=== PATIENT | female | born 1940 | race Caucasian/White ===

== ENCOUNTER 2017-12-04 10:10 | Inpatient (IN) | payer MEDICARE, MEDICAID ==
[2017-12-04] VITALS (11 sets, daily range): BP systolic 74–142; BP diastolic 32–117
[~2017-12-04] VITALS: Ht 157.5 cm; Wt 81.8 kg
[~2017-12-04 10:10] MED LIST: ADV50250 IH; ALBU18HF2 IH; BUSP10TA11 PO; CITA-278 PO; HYDR-569 PO; HYDR12.522 PO; IMD30T PO; MELO-83 PO; MONT10TA21 PO; PANT40TA39 PO; ROSU10TA PO; TIOT18CA7 IH; WEL100T PO
[2017-12-04 10:37] LABS: BASOPHILS % (AUTO) 0.4 % (0-1); EOSINOPHILS # (AUTO) 0.1 X10'3 (0-0.9); EOSINOPHILS % (AUTO) 2.3 % (0-6); HEMATOCRIT 30.4 % (35.0-45.0); HEMOGLOBIN 10.1 g/dl (12.0-16.0); LYMPHOCYTES # (AUTO) 0.6 X10'3 (1.1-4.8); LYMPHOCYTES % (AUTO) 14.2 % (21-51); MEAN CORPUSCULAR HEMOGLOBIN 32.4 PG (27.0-31.0); MEAN CORPUSCULAR HGB CONC 33.2 % (33.0-36.5); MEAN CORPUSCULAR VOLUME 97.8 FL (78-98); MEAN PLATELET VOLUME 8.2 FL (7.4-10.4); MONOCYTES # (AUTO) 0.4 X10'3 (0-0.9); MONOCYTES % (AUTO) 8.5 % (2-12); NEUTROPHILS # (AUTO) 3.3 X10'3 (1.8-7.7); NEUTROPHILS % (AUTO) 74.6 % (42-75); PLATELET COUNT 217 X10'3 (140-440); RED BLOOD COUNT 3.11 X10'6 (4.20-5.60); RED CELL DISTRIBUTION WIDTH 14.7 % (11.5-14.5); WHITE BLOOD COUNT 4.4 X10'3 (4.5-11.0)
[2017-12-04 10:48] LABS: INR 1.1 INR; PARTIAL THROMBOPLASTIN TIME 28 SECONDS (22-32); PROTHROMBIN TIME 11.4 SECONDS (9.0-12.0)
[2017-12-04 10:54] LABS: ALANINE AMINOTRANSFERASE 20 U/L (12-78); ALBUMIN 3.8 G/DL (3.4-5.0); ALBUMIN/GLOBULIN RATIO 1.2 (1.1-1.5); ALKALINE PHOSPHATASE 78 IU/L (46-116); ANION GAP 9 (8-16); ASPARTATE AMINO TRANSFERASE 14 U/L (10-37); BILIRUBIN,TOTAL 1.2 MG/DL (0.1-1.0); BLOOD UREA NITROGEN 6 MG/DL (7-18); BUN/CREATININE RATIO 7.9 (6.6-38.0); CHLORIDE 96 MMOL/L (99-107); CREATININE 0.76 MG/DL (0.40-0.90); GLUCOSE 93 MG/DL (70-104); POTASSIUM 4.2 MMOL/L (3.5-5.1); SODIUM 131 MMOL/L (135-145); TOTAL CARBON DIOXIDE 25.7 MMOL/L (24-32); TOTAL PROTEIN 6.9 G/DL (6.4-8.2); eGFR 74 ML/MIN
[2017-12-04] MEDS ORDERED: verapamil 2.5 mg/ml inj IV ONE (12:40)
[2017-12-04] MEDS ORDERED: albuterol 2.5 MG/3 ML nebule NEB PRN (13:30)
[2017-12-04] MEDS ORDERED: normal saline 1000ml 1,000 ML IV SCH (13:32)
[2017-12-04] MEDS ORDERED: magnesium 4gm in 100ml NS 100 ML IV PRN (13:35)
[2017-12-04] MEDS ORDERED: potassium Cl 20 mEq SR tablet PO PRN ×2 (13:35)
[2017-12-04] MEDS ORDERED: magnesium hydroxide 30ml (MOM) UD suspension PO PRN (13:35)
[2017-12-04] MEDS ORDERED: HYDROcodone/acetaminophen 10/325mg tab PO PRN (13:35)
[2017-12-04] MEDS ORDERED: magnesium Cl slow-release 64mg tablet PO PRN (13:35)
[2017-12-04] MEDS ORDERED: magnesium 2GM in 50ml NS 50 ML IV PRN (13:35)
[2017-12-04] MEDS ORDERED: acetaminophen 325mg tablet PO PRN ×2 (13:35)
[2017-12-04] MEDS ORDERED: mag hydrox/Alum hydrox/simeth 30ml oral suspension PO PRN ×2 (13:35→14:25)
[2017-12-04] MEDS ORDERED: diphenhydrAMINE 25mg capsule PO PRN (13:35)
[2017-12-04] MEDS ORDERED: morphine 4 MG/ML inj SYRINge IV PRN ×2 (13:35)
[2017-12-04] MEDS ORDERED: potassium Cl 40MEQ/NS 500ml 500 ML IV PRN ×2 (13:35)
[2017-12-04] MEDS: K and/or MAG REPLACEMENT MC SCH (13:35)
[2017-12-04] MEDS ORDERED: ondansetron/PF 4mg/2ml inj IV PRN (13:35)
[2017-12-04] MEDS: diltiazem-NS 100mg/100ml 100 ML IV SCH (14:04)
[2017-12-04 14:20] LABS: HEMOGLOBIN A1C 5.2 % (4.5-6.2)
[2017-12-04] MEDS ORDERED: haloperidol 5mg tablet PO PRN (14:25)
[2017-12-04] MEDS ORDERED: haloperidol lactate 5mg/ml inj IM PRN (14:25)
[2017-12-04] MEDS ORDERED: LORazepam 2 mg/ml vial IV PRN (14:25)
[2017-12-04] MEDS ORDERED: thiamine inj. 100 MG in normal saline 100ml IV soln 100 ML IV ONE (14:25)
[2017-12-04 15:54] LABS: % IRON SATURATION 9 % (11-46); IRON 37 UG/DL (49-151); TOTAL IRON BINDING CAPACITY 393 UG/DL (259-388)
[2017-12-04 16:11] LABS: FERRITIN 46 NG/ML (8-252)
[2017-12-04] MEDS: normal saline 1000ml 1,000 ML IV SCH (18:53)
[2017-12-04] MEDS: apixaban 5mg tablet PO SCH (19:37)
[2017-12-04] MEDS: sotalol 80mg tablet PO SCH (19:37)
[2017-12-04] MEDS: busPIRone 15mg tablet PO SCH (19:38)
[2017-12-04] MEDS: ipratropium 0.5 MG/2.5ML nebule IH SCH (21:21)
[2017-12-04] MEDS: BUDESONIDE 0.25 MG/2 ML AMPUL.NEB IH SCH (21:22)
[2017-12-04] MEDS: albuterol 2.5 MG/3 ML nebule NEB SCH (22:26)
[2017-12-05] VITALS (13 sets, daily range): BP systolic 85–156; BP diastolic 55–95
[2017-12-05] MEDS: ipratropium 0.5 MG/2.5ML nebule IH SCH ×4 (03:20→20:04)
[2017-12-05 05:29] LABS: BASOPHILS % (AUTO) 0.9 % (0-1); EOSINOPHILS # (AUTO) 0.2 X10'3 (0-0.9); EOSINOPHILS % (AUTO) 5.2 % (0-6); HEMATOCRIT 29.2 % (35.0-45.0); HEMOGLOBIN 9.9 g/dl (12.0-16.0); LYMPHOCYTES # (AUTO) 1.1 X10'3 (1.1-4.8); LYMPHOCYTES % (AUTO) 29.4 % (21-51); MEAN CORPUSCULAR HGB CONC 33.8 % (33.0-36.5); MEAN CORPUSCULAR VOLUME 97.6 FL (78-98); MEAN PLATELET VOLUME 8.9 FL (7.4-10.4); MONOCYTES # (AUTO) 0.3 X10'3 (0-0.9); MONOCYTES % (AUTO) 7.7 % (2-12); NEUTROPHILS # (AUTO) 2.2 X10'3 (1.8-7.7); NEUTROPHILS % (AUTO) 56.8 % (42-75); PLATELET COUNT 223 X10'3 (140-440); RED BLOOD COUNT 2.99 X10'6 (4.20-5.60); RED CELL DISTRIBUTION WIDTH 14.5 % (11.5-14.5); WHITE BLOOD COUNT 3.9 X10'3 (4.5-11.0)
[2017-12-05 06:16] LABS: ALANINE AMINOTRANSFERASE 17 U/L (12-78); ALBUMIN 3.5 G/DL (3.4-5.0); ALBUMIN/GLOBULIN RATIO 1.1 (1.1-1.5); ALKALINE PHOSPHATASE 70 IU/L (46-116); ANION GAP 10 (8-16); ASPARTATE AMINO TRANSFERASE 11 U/L (10-37); BLOOD UREA NITROGEN 7 MG/DL (7-18); CALCIUM 8.8 MG/DL (8.5-10.1); CHLORIDE 98 MMOL/L (99-107); CHOL/HDL RATIO 1.3 (0.00-4.99); CHOLESTEROL 136 MG/DL (0-200); CREATININE 0.88 MG/DL (0.40-0.90); GLUCOSE 82 MG/DL (70-104); HDL CHOLESTEROL 103 MG/DL (35-60); LDL CHOLESTEROL 28 MG/DL (50-100); LIPASE 103 U/L (73-393); MAGNESIUM 1.7 MG/DL (1.5-2.4); PHOSPHORUS 3.9 MG/DL (2.3-4.5); POTASSIUM 4.1 MMOL/L (3.5-5.1); SODIUM 132 MMOL/L (135-145); TOTAL CARBON DIOXIDE 24.2 MMOL/L (24-32); TOTAL PROTEIN 6.7 G/DL (6.4-8.2); TRIGLYCERIDES 36 MG/DL (20-135); eGFR 62 ML/MIN
[2017-12-05] MEDS: K and/or MAG REPLACEMENT MC SCH (08:00)
[2017-12-05] MEDS ORDERED: enoxaparin 40mg/0.4ml syringe SUBCUT SCH (08:00)
[2017-12-05] MEDS: BUDESONIDE 0.25 MG/2 ML AMPUL.NEB IH SCH ×2 (08:23→20:05)
[2017-12-05] MEDS: albuterol 2.5 MG/3 ML nebule NEB SCH ×4 (08:24→20:05)
[2017-12-05] MEDS: folic acid 1mg tablet PO SCH (08:53)
[2017-12-05] MEDS: isosorbide mononitrate 30mg tab.SR.24H PO SCH (08:53)
[2017-12-05] MEDS: thiamine 100mg tablet PO SCH (08:53)
[2017-12-05] MEDS: montelukast 10mg tablet PO SCH (08:53)
[2017-12-05] MEDS: busPIRone 15mg tablet PO SCH ×2 (08:53→20:31)
[2017-12-05] MEDS: buPROPion SR 150mg tablet PO SCH ×2 (08:54→20:31)
[2017-12-05] MEDS: HYDROchlorothiazide 12.5mg capsule PO SCH (08:54)
[2017-12-05] MEDS: atorvastatin 20mg tablet PO SCH (08:54)
[2017-12-05] MEDS: sotalol 80mg tablet PO SCH ×2 (08:54→20:31)
[2017-12-05] MEDS: citalopram 20mg tablet PO SCH (08:54)
[2017-12-05] MEDS: multivitamins, therapeutics tablet PO SCH (08:55)
[2017-12-05] MEDS: pantoprazole 40mg Tablet.DR PO SCH (08:55)
[2017-12-05] MEDS: apixaban 5mg tablet PO SCH ×2 (08:55→20:31)
[2017-12-05] MEDS: diltiazem-NS 100mg/100ml 100 ML IV SCH (08:56)
[2017-12-05] MEDS: diltiazem 30mg tablet PO SCH ×2 (14:19→20:31)
[2017-12-06] VITALS (7 sets, daily range): BP systolic 96–141; BP diastolic 59–98
[2017-12-06] MEDS: diltiazem 30mg tablet PO SCH ×4 (02:03→19:23)
[2017-12-06] MEDS: ipratropium 0.5 MG/2.5ML nebule IH SCH ×3 (02:46→20:48)
[2017-12-06 05:19] LABS: BASOPHILS # (AUTO) 0.1 X10'3 (0-0.2); BASOPHILS % (AUTO) 1.5 % (0-1); EOSINOPHILS # (AUTO) 0.2 X10'3 (0-0.9); EOSINOPHILS % (AUTO) 4.9 % (0-6); HEMATOCRIT 29.5 % (35.0-45.0); HEMOGLOBIN 9.9 g/dl (12.0-16.0); LYMPHOCYTES # (AUTO) 1.3 X10'3 (1.1-4.8); LYMPHOCYTES % (AUTO) 27.5 % (21-51); MEAN CORPUSCULAR HEMOGLOBIN 32.8 PG (27.0-31.0); MEAN CORPUSCULAR HGB CONC 33.6 % (33.0-36.5); MEAN CORPUSCULAR VOLUME 97.5 FL (78-98); MEAN PLATELET VOLUME 8.8 FL (7.4-10.4); MONOCYTES # (AUTO) 0.4 X10'3 (0-0.9); MONOCYTES % (AUTO) 9.1 % (2-12); NEUTROPHILS # (AUTO) 2.6 X10'3 (1.8-7.7); PLATELET COUNT 216 X10'3 (140-440); RED BLOOD COUNT 3.03 X10'6 (4.20-5.60); RED CELL DISTRIBUTION WIDTH 14.3 % (11.5-14.5); WHITE BLOOD COUNT 4.6 X10'3 (4.5-11.0)
[2017-12-06 05:51] LABS: ALANINE AMINOTRANSFERASE 18 U/L (12-78); ALBUMIN 3.4 G/DL (3.4-5.0); ALBUMIN/GLOBULIN RATIO 1.1 (1.1-1.5); ALKALINE PHOSPHATASE 72 IU/L (46-116); ANION GAP 10 (8-16); ASPARTATE AMINO TRANSFERASE 16 U/L (10-37); BILIRUBIN,TOTAL 0.7 MG/DL (0.1-1.0); BLOOD UREA NITROGEN 7 MG/DL (7-18); BUN/CREATININE RATIO 8.2 (6.6-38.0); CALCIUM 8.8 MG/DL (8.5-10.1); CHLORIDE 96 MMOL/L (99-107); CREATININE 0.85 MG/DL (0.40-0.90); GLUCOSE 91 MG/DL (70-104); LIPASE 99 U/L (73-393); MAGNESIUM 1.5 MG/DL (1.5-2.4); PHOSPHORUS 3.9 MG/DL (2.3-4.5); POTASSIUM 3.7 MMOL/L (3.5-5.1); SODIUM 130 MMOL/L (135-145); TOTAL CARBON DIOXIDE 24.4 MMOL/L (24-32); TOTAL PROTEIN 6.5 G/DL (6.4-8.2); eGFR 65 ML/MIN
[2017-12-06] MEDS: atorvastatin 20mg tablet PO SCH (07:30)
[2017-12-06] MEDS: pantoprazole 40mg Tablet.DR PO SCH (07:30)
[2017-12-06] MEDS: citalopram 20mg tablet PO SCH (07:30)
[2017-12-06] MEDS: multivitamins, therapeutics tablet PO SCH (07:31)
[2017-12-06] MEDS: sotalol 80mg tablet PO SCH ×2 (07:32→19:23)
[2017-12-06] MEDS: isosorbide mononitrate 30mg tab.SR.24H PO SCH (07:32)
[2017-12-06] MEDS: apixaban 5mg tablet PO SCH ×2 (07:32→19:23)
[2017-12-06] MEDS: busPIRone 15mg tablet PO SCH ×2 (07:32→19:23)
[2017-12-06] MEDS: HYDROchlorothiazide 12.5mg capsule PO SCH (07:32)
[2017-12-06] MEDS: thiamine 100mg tablet PO SCH (07:32)
[2017-12-06] MEDS: buPROPion SR 150mg tablet PO SCH ×2 (07:33→19:23)
[2017-12-06] MEDS: folic acid 1mg tablet PO SCH (07:33)
[2017-12-06] MEDS: BUDESONIDE 0.25 MG/2 ML AMPUL.NEB IH SCH ×2 (07:45→20:48)
[2017-12-06] MEDS: albuterol 2.5 MG/3 ML nebule NEB SCH ×4 (07:45→20:47)
[2017-12-06] MEDS: K and/or MAG REPLACEMENT MC SCH (08:00)
[2017-12-06] MEDS: montelukast 10mg tablet PO SCH (09:32)
[2017-12-06] MEDS: HYDROcodone/acetaminophen 5mg/325mg tablet PO PRN (11:47)
[2017-12-06] MEDS ORDERED: LORazepam 2 mg/ml vial IV PRN (14:25)
[2017-12-06] MEDS: normal saline 1000ml 1,000 ML IV SCH (18:35)
[2017-12-07] VITALS (8 sets, daily range): BP systolic 105–137; BP diastolic 69–89
[2017-12-07] MEDS: diltiazem 30mg tablet PO SCH ×4 (01:46→20:17)
[2017-12-07] MEDS: ipratropium 0.5 MG/2.5ML nebule IH SCH ×4 (02:48→20:12)
[2017-12-07 05:15] LABS: BASOPHILS % (AUTO) 0.7 % (0-1); EOSINOPHILS # (AUTO) 0.2 X10'3 (0-0.9); EOSINOPHILS % (AUTO) 3.8 % (0-6); HEMATOCRIT 29.7 % (35.0-45.0); MEAN CORPUSCULAR HEMOGLOBIN 32.5 PG (27.0-31.0); MEAN CORPUSCULAR HGB CONC 33.6 % (33.0-36.5); MEAN CORPUSCULAR VOLUME 96.9 FL (78-98); MEAN PLATELET VOLUME 9.1 FL (7.4-10.4); MONOCYTES # (AUTO) 0.5 X10'3 (0-0.9); MONOCYTES % (AUTO) 8.5 % (2-12); NEUTROPHILS # (AUTO) 3.8 X10'3 (1.8-7.7); PLATELET COUNT 246 X10'3 (140-440); RED BLOOD COUNT 3.07 X10'6 (4.20-5.60); RED CELL DISTRIBUTION WIDTH 14.3 % (11.5-14.5); WHITE BLOOD COUNT 5.5 X10'3 (4.5-11.0)
[2017-12-07 05:30] LABS: ALANINE AMINOTRANSFERASE 16 U/L (12-78); ALBUMIN 3.6 G/DL (3.4-5.0); ALBUMIN/GLOBULIN RATIO 1.1 (1.1-1.5); ALKALINE PHOSPHATASE 69 IU/L (46-116); ANION GAP 10 (8-16); ASPARTATE AMINO TRANSFERASE 15 U/L (10-37); BILIRUBIN,TOTAL 0.8 MG/DL (0.1-1.0); BLOOD UREA NITROGEN 9 MG/DL (7-18); BUN/CREATININE RATIO 10.1 (6.6-38.0); CALCIUM 8.9 MG/DL (8.5-10.1); CHLORIDE 92 MMOL/L (99-107); CREATININE 0.89 MG/DL (0.40-0.90); GLUCOSE 93 MG/DL (70-104); LIPASE 116 U/L (73-393); MAGNESIUM 1.4 MG/DL (1.5-2.4); PHOSPHORUS 3.9 MG/DL (2.3-4.5); POTASSIUM 3.7 MMOL/L (3.5-5.1); SODIUM 126 MMOL/L (135-145); TOTAL CARBON DIOXIDE 24.2 MMOL/L (24-32); TOTAL PROTEIN 6.8 G/DL (6.4-8.2); eGFR 61 ML/MIN
[2017-12-07] MEDS: BUDESONIDE 0.25 MG/2 ML AMPUL.NEB IH SCH ×2 (07:52→20:12)
[2017-12-07] MEDS: albuterol 2.5 MG/3 ML nebule NEB SCH ×4 (07:52→20:13)
[2017-12-07] MEDS: K and/or MAG REPLACEMENT MC SCH (08:00)
[2017-12-07] MEDS: citalopram 20mg tablet PO SCH (08:22)
[2017-12-07] MEDS: buPROPion SR 150mg tablet PO SCH ×2 (08:22→20:17)
[2017-12-07] MEDS: HYDROchlorothiazide 12.5mg capsule PO SCH (08:23)
[2017-12-07] MEDS: busPIRone 15mg tablet PO SCH ×2 (08:23→20:17)
[2017-12-07] MEDS: pantoprazole 40mg Tablet.DR PO SCH (08:23)
[2017-12-07] MEDS: montelukast 10mg tablet PO SCH (08:23)
[2017-12-07] MEDS: thiamine 100mg tablet PO SCH (08:24)
[2017-12-07] MEDS: atorvastatin 20mg tablet PO SCH (08:24)
[2017-12-07] MEDS: apixaban 5mg tablet PO SCH ×2 (08:24→20:17)
[2017-12-07] MEDS: folic acid 1mg tablet PO SCH (08:24)
[2017-12-07] MEDS: multivitamins, therapeutics tablet PO SCH (08:24)
[2017-12-07] MEDS: isosorbide mononitrate 30mg tab.SR.24H PO SCH (08:24)
[2017-12-07] MEDS: sotalol 80mg tablet PO SCH ×2 (08:24→20:17)
[2017-12-07] MEDS: HYDROcodone/acetaminophen 5mg/325mg tablet PO PRN (14:08)
[2017-12-07] MEDS: LORazepam 1 MG tablet PO PRN ×2 (19:32→23:08)
[2017-12-08] MEDS: diltiazem 30mg tablet PO SCH ×4 (01:31→20:42)
[2017-12-08] MEDS: LORazepam 1 MG tablet PO PRN (01:32)
[2017-12-08] MEDS: ipratropium 0.5 MG/2.5ML nebule IH SCH ×4 (02:48→20:14)
[2017-12-08 03:00] VITALS: BP 138/81
[2017-12-08 05:35] LABS: BASOPHILS % (AUTO) 0.3 % (0-1); EOSINOPHILS # (AUTO) 0.1 X10'3 (0-0.9); EOSINOPHILS % (AUTO) 1.8 % (0-6); HEMATOCRIT 29.1 % (35.0-45.0); HEMOGLOBIN 9.8 g/dl (12.0-16.0); LYMPHOCYTES # (AUTO) 0.5 X10'3 (1.1-4.8); LYMPHOCYTES % (AUTO) 7.1 % (21-51); MEAN CORPUSCULAR HEMOGLOBIN 32.7 PG (27.0-31.0); MEAN CORPUSCULAR HGB CONC 33.8 % (33.0-36.5); MEAN CORPUSCULAR VOLUME 96.8 FL (78-98); MEAN PLATELET VOLUME 9.1 FL (7.4-10.4); MONOCYTES # (AUTO) 0.9 X10'3 (0-0.9); MONOCYTES % (AUTO) 11.5 % (2-12); NEUTROPHILS % (AUTO) 79.3 % (42-75); PLATELET COUNT 238 X10'3 (140-440); RED CELL DISTRIBUTION WIDTH 14.1 % (11.5-14.5); WHITE BLOOD COUNT 7.6 X10'3 (4.5-11.0)
[2017-12-08 06:00] VITALS: BP 124/92
[2017-12-08 06:16] LABS: ALANINE AMINOTRANSFERASE 15 U/L (12-78); ALBUMIN 3.5 G/DL (3.4-5.0); ALBUMIN/GLOBULIN RATIO 1.1 (1.1-1.5); ALKALINE PHOSPHATASE 69 IU/L (46-116); ANION GAP 9 (8-16); ASPARTATE AMINO TRANSFERASE 15 U/L (10-37); BILIRUBIN,TOTAL 1.1 MG/DL (0.1-1.0); BLOOD UREA NITROGEN 7 MG/DL (7-18); BUN/CREATININE RATIO 9.7 (6.6-38.0); CALCIUM 8.7 MG/DL (8.5-10.1); CHLORIDE 89 MMOL/L (99-107); CREATININE 0.72 MG/DL (0.40-0.90); GLUCOSE 94 MG/DL (70-104); LIPASE 150 U/L (73-393); MAGNESIUM 1.3 MG/DL (1.5-2.4); PHOSPHORUS 3.5 MG/DL (2.3-4.5); POTASSIUM 3.2 MMOL/L (3.5-5.1); SODIUM 123 MMOL/L (135-145); TOTAL CARBON DIOXIDE 24.8 MMOL/L (24-32); TOTAL PROTEIN 6.8 G/DL (6.4-8.2); eGFR 78 ML/MIN
[2017-12-08] MEDS: K and/or MAG REPLACEMENT MC SCH (08:00)
[2017-12-08] MEDS ORDERED: potassium Cl 40MEQ/NS 500ml 500 ML IV PRN ×2 (08:30)
[2017-12-08] MEDS ORDERED: magnesium 2GM in 50ml NS 50 ML IV PRN (08:30)
[2017-12-08] MEDS ORDERED: magnesium 4gm in 100ml NS 100 ML IV PRN (08:30)
[2017-12-08] MEDS ORDERED: potassium Cl 20 mEq SR tablet PO PRN (08:30)
[2017-12-08] MEDS: albuterol 2.5 MG/3 ML nebule NEB SCH ×4 (08:34→20:13)
[2017-12-08] MEDS: BUDESONIDE 0.25 MG/2 ML AMPUL.NEB IH SCH ×2 (08:34→20:13)
[2017-12-08] MEDS: normal saline 1000ml 1,000 ML IV SCH ×2 (09:04→22:48)
[2017-12-08] MEDS ORDERED: LIDOcaine 1% 30ml vial 5 ML in potassium Cl 40MEQ/NS 500ml 500 ML IV PRN (09:15)
[2017-12-08 11:00] VITALS: BP 126/81
[2017-12-08] MEDS ORDERED: LORazepam 2 mg/ml vial IV PRN (14:25)
[2017-12-08] MEDS ORDERED: LORazepam 1 MG tablet PO PRN (14:25)
[2017-12-08] MEDS: sotalol 80mg tablet PO SCH ×2 (14:37→20:42)
[2017-12-08] MEDS: busPIRone 15mg tablet PO SCH ×2 (14:38→20:42)
[2017-12-08] MEDS: citalopram 20mg tablet PO SCH (14:40)
[2017-12-08] MEDS: apixaban 5mg tablet PO SCH ×2 (14:40→20:42)
[2017-12-08] MEDS: folic acid 1mg tablet PO SCH (14:41)
[2017-12-08] MEDS: isosorbide mononitrate 30mg tab.SR.24H PO SCH (14:41)
[2017-12-08] MEDS: atorvastatin 20mg tablet PO SCH (14:41)
[2017-12-08] MEDS: HYDROchlorothiazide 12.5mg capsule PO SCH (14:42)
[2017-12-08] MEDS: montelukast 10mg tablet PO SCH (14:44)
[2017-12-08] MEDS: pantoprazole 40mg Tablet.DR PO SCH (14:44)
[2017-12-08] MEDS: multivitamins, therapeutics tablet PO SCH (14:44)
[2017-12-08] MEDS: thiamine 100mg tablet PO SCH (14:45)
[2017-12-08] MEDS: buPROPion SR 150mg tablet PO SCH ×2 (14:45→20:42)
[2017-12-08] MEDS: magnesium Cl slow-release 64mg tablet PO PRN ×2 (14:49→20:42)
[2017-12-08 15:00] VITALS: BP 138/92
[2017-12-08 19:00] VITALS: BP 126/69
[2017-12-08 23:00] VITALS: BP 131/96
[2017-12-09] VITALS (7 sets, daily range): BP systolic 97–132; BP diastolic 71–89
[2017-12-09] MEDS: diltiazem 30mg tablet PO SCH ×4 (02:30→20:16)
[2017-12-09] MEDS: ipratropium 0.5 MG/2.5ML nebule IH SCH ×4 (02:50→19:36)
[2017-12-09 05:27] LABS: BASOPHILS % (AUTO) 0.3 % (0-1); EOSINOPHILS % (AUTO) 0.7 % (0-6); HEMATOCRIT 28.2 % (35.0-45.0); HEMOGLOBIN 9.6 g/dl (12.0-16.0); LYMPHOCYTES # (AUTO) 0.7 X10'3 (1.1-4.8); LYMPHOCYTES % (AUTO) 11.5 % (21-51); MEAN CORPUSCULAR HEMOGLOBIN 32.6 PG (27.0-31.0); MEAN CORPUSCULAR HGB CONC 34.1 % (33.0-36.5); MEAN CORPUSCULAR VOLUME 95.6 FL (78-98); MEAN PLATELET VOLUME 8.8 FL (7.4-10.4); MONOCYTES # (AUTO) 0.7 X10'3 (0-0.9); MONOCYTES % (AUTO) 10.6 % (2-12); NEUTROPHILS % (AUTO) 76.9 % (42-75); PLATELET COUNT 240 X10'3 (140-440); RED BLOOD COUNT 2.95 X10'6 (4.20-5.60); WHITE BLOOD COUNT 6.5 X10'3 (4.5-11.0)
[2017-12-09 05:30] LABS: ALANINE AMINOTRANSFERASE 14 U/L (12-78); ALBUMIN 3.2 G/DL (3.4-5.0); ALKALINE PHOSPHATASE 66 IU/L (46-116); ANION GAP 9 (8-16); ASPARTATE AMINO TRANSFERASE 16 U/L (10-37); BILIRUBIN,TOTAL 0.9 MG/DL (0.1-1.0); BLOOD UREA NITROGEN 7 MG/DL (7-18); BUN/CREATININE RATIO 10.8 (6.6-38.0); CALCIUM 8.2 MG/DL (8.5-10.1); CHLORIDE 90 MMOL/L (99-107); CREATININE 0.65 MG/DL (0.40-0.90); GLUCOSE 86 MG/DL (70-104); LIPASE 78 U/L (73-393); MAGNESIUM 1.5 MG/DL (1.5-2.4); PHOSPHORUS 3.1 MG/DL (2.3-4.5); SODIUM 125 MMOL/L (135-145); TOTAL PROTEIN 6.4 G/DL (6.4-8.2); eGFR 88 ML/MIN
[2017-12-09] MEDS: potassium Cl 20 mEq SR tablet PO PRN ×3 (05:38→16:18)
[2017-12-09] MEDS: BUDESONIDE 0.25 MG/2 ML AMPUL.NEB IH SCH ×2 (07:31→19:36)
[2017-12-09] MEDS: albuterol 2.5 MG/3 ML nebule NEB SCH ×4 (07:31→19:36)
[2017-12-09] MEDS: K and/or MAG REPLACEMENT MC SCH (08:32)
[2017-12-09] MEDS: busPIRone 15mg tablet PO SCH ×2 (08:40→20:18)
[2017-12-09] MEDS: sotalol 80mg tablet PO SCH ×2 (08:40→20:18)
[2017-12-09] MEDS: citalopram 20mg tablet PO SCH (08:41)
[2017-12-09] MEDS: isosorbide mononitrate 30mg tab.SR.24H PO SCH (08:42)
[2017-12-09] MEDS: folic acid 1mg tablet PO SCH (08:42)
[2017-12-09] MEDS: apixaban 5mg tablet PO SCH ×2 (08:42→20:18)
[2017-12-09] MEDS: atorvastatin 20mg tablet PO SCH (08:43)
[2017-12-09] MEDS: HYDROchlorothiazide 12.5mg capsule PO SCH (08:43)
[2017-12-09] MEDS: montelukast 10mg tablet PO SCH (08:44)
[2017-12-09] MEDS: pantoprazole 40mg Tablet.DR PO SCH (08:44)
[2017-12-09] MEDS: thiamine 100mg tablet PO SCH (08:45)
[2017-12-09] MEDS: multivitamins, therapeutics tablet PO SCH (08:45)
[2017-12-09] MEDS: buPROPion SR 150mg tablet PO SCH ×2 (08:45→20:19)
[2017-12-09] MEDS: normal saline 1000ml 1,000 ML IV SCH (17:48)
[2017-12-10] VITALS (7 sets, daily range): BP systolic 113–143; BP diastolic 68–91
[2017-12-10] MEDS: diltiazem 30mg tablet PO SCH ×4 (02:29→20:59)
[2017-12-10] MEDS: ipratropium 0.5 MG/2.5ML nebule IH SCH ×4 (02:46→20:35)
[2017-12-10 02:55] LABS: BASOPHILS # (AUTO) 0.1 X10'3 (0-0.2); BASOPHILS % (AUTO) 1.6 % (0-1); EOSINOPHILS # (AUTO) 0.2 X10'3 (0-0.9); EOSINOPHILS % (AUTO) 2.3 % (0-6); HEMATOCRIT 29.9 % (35.0-45.0); LYMPHOCYTES # (AUTO) 0.9 X10'3 (1.1-4.8); LYMPHOCYTES % (AUTO) 12.8 % (21-51); MEAN CORPUSCULAR HEMOGLOBIN 32.6 PG (27.0-31.0); MEAN CORPUSCULAR HGB CONC 33.6 % (33.0-36.5); MEAN PLATELET VOLUME 8.2 FL (7.4-10.4); MONOCYTES # (AUTO) 0.8 X10'3 (0-0.9); NEUTROPHILS % (AUTO) 71.3 % (42-75); PLATELET COUNT 250 X10'3 (140-440); RED BLOOD COUNT 3.08 X10'6 (4.20-5.60); RED CELL DISTRIBUTION WIDTH 14.3 % (11.5-14.5)
[2017-12-10 03:04] LABS: ALBUMIN 3.3 G/DL (3.4-5.0); ANION GAP 9 (8-16); BLOOD UREA NITROGEN 6 MG/DL (7-18); BUN/CREATININE RATIO 9.4 (6.6-38.0); CALCIUM 8.3 MG/DL (8.5-10.1); CHLORIDE 91 MMOL/L (99-107); CREATININE 0.64 MG/DL (0.40-0.90); GLUCOSE 95 MG/DL (70-104); MAGNESIUM 1.5 MG/DL (1.5-2.4); SODIUM 123 MMOL/L (135-145); TOTAL CARBON DIOXIDE 23.5 MMOL/L (24-32); eGFR 90 ML/MIN
[2017-12-10] MEDS: normal saline 1000ml 1,000 ML IV SCH (03:24)
[2017-12-10] MEDS: K and/or MAG REPLACEMENT MC SCH (08:00)
[2017-12-10] MEDS: albuterol 2.5 MG/3 ML nebule NEB SCH ×4 (08:21→20:35)
[2017-12-10] MEDS: BUDESONIDE 0.25 MG/2 ML AMPUL.NEB IH SCH ×2 (08:21→20:35)
[2017-12-10] MEDS: sotalol 80mg tablet PO SCH ×2 (09:16→20:59)
[2017-12-10] MEDS: busPIRone 15mg tablet PO SCH ×2 (09:16→21:08)
[2017-12-10] MEDS: citalopram 20mg tablet PO SCH (09:18)
[2017-12-10] MEDS: apixaban 5mg tablet PO SCH ×2 (09:18→21:00)
[2017-12-10] MEDS: folic acid 1mg tablet PO SCH (09:18)
[2017-12-10] MEDS: atorvastatin 20mg tablet PO SCH (09:19)
[2017-12-10] MEDS: isosorbide mononitrate 30mg tab.SR.24H PO SCH (09:19)
[2017-12-10] MEDS: montelukast 10mg tablet PO SCH (09:20)
[2017-12-10] MEDS: pantoprazole 40mg Tablet.DR PO SCH (09:20)
[2017-12-10] MEDS: HYDROchlorothiazide 12.5mg capsule PO SCH (09:20)
[2017-12-10] MEDS: thiamine 100mg tablet PO SCH (09:21)
[2017-12-10] MEDS: multivitamins, therapeutics tablet PO SCH (09:21)
[2017-12-10] MEDS: buPROPion SR 150mg tablet PO SCH (09:22)
[2017-12-10] MEDS: sodium chloride 1gm tablet PO SCH ×2 (14:08→20:59)
[2017-12-10 15:27] LABS: ABG BASE EXCESS -4.3 mmol/L (-2.0-3.0); ABG HCO3 19.3 mmol/L (22.0-26.0); ABG OXYGEN SATURATION 94.7 % (95-98); ABG PCO2 (T) 30.7 mmHg (32.0-45.0); ABG PH (T) 7.417 (7.350-7.450); FCOHb 0.5 % (0.5-1.5); FMetHb 0.1 % (0.3-1.12); FO2Hb 94.1 % (94-100); RESPIRATORY RATE (OBSERVED) 20 b/min; TOTAL HEMOGLOBIN 11.2 G/dl (12.0-16.0)
[2017-12-10 15:30] LABS: ALLEN'S TEST Positive
[2017-12-11] VITALS (8 sets, daily range): BP systolic 108–131; BP diastolic 58–88
[2017-12-11] MEDS: diltiazem 30mg tablet PO SCH ×4 (02:09→21:56)
[2017-12-11 02:39] LABS: ALBUMIN 3.3 G/DL (3.4-5.0); ANION GAP 9 (8-16); BLOOD UREA NITROGEN 4 MG/DL (7-18); BUN/CREATININE RATIO 6.8 (6.6-38.0); CALCIUM 8.6 MG/DL (8.5-10.1); CHLORIDE 92 MMOL/L (99-107); CREATININE 0.59 MG/DL (0.40-0.90); GLUCOSE 96 MG/DL (70-104); MAGNESIUM 1.5 MG/DL (1.5-2.4); POTASSIUM 3.4 MMOL/L (3.5-5.1); SODIUM 126 MMOL/L (135-145); TOTAL CARBON DIOXIDE 24.9 MMOL/L (24-32); eGFR > 90 ML/MIN
[2017-12-11] MEDS: ipratropium 0.5 MG/2.5ML nebule IH SCH ×4 (03:26→20:16)
[2017-12-11] MEDS: sotalol 80mg tablet PO SCH ×2 (07:50→21:56)
[2017-12-11] MEDS: atorvastatin 20mg tablet PO SCH (07:51)
[2017-12-11] MEDS: pantoprazole 40mg Tablet.DR PO SCH (07:51)
[2017-12-11] MEDS: multivitamins, therapeutics tablet PO SCH (07:51)
[2017-12-11] MEDS: folic acid 1mg tablet PO SCH (07:51)
[2017-12-11] MEDS: montelukast 10mg tablet PO SCH (07:51)
[2017-12-11] MEDS: thiamine 100mg tablet PO SCH (07:51)
[2017-12-11] MEDS: busPIRone 15mg tablet PO SCH ×2 (07:52→21:56)
[2017-12-11] MEDS: K and/or MAG REPLACEMENT MC SCH (07:52)
[2017-12-11] MEDS: sodium chloride 1gm tablet PO SCH ×3 (07:52→21:56)
[2017-12-11] MEDS: isosorbide mononitrate 30mg tab.SR.24H PO SCH (07:52)
[2017-12-11] MEDS: apixaban 5mg tablet PO SCH ×2 (07:52→21:56)
[2017-12-11] MEDS: albuterol 2.5 MG/3 ML nebule NEB SCH ×4 (08:13→20:16)
[2017-12-11] MEDS: BUDESONIDE 0.25 MG/2 ML AMPUL.NEB IH SCH ×2 (08:13→20:16)
[2017-12-11] MEDS: polyethylene glycol 3350 17gm powd pack PO SCH ×2 (15:04→21:56)
[2017-12-12] MEDS: diltiazem 30mg tablet PO SCH ×4 (01:50→20:51)
[2017-12-12 02:34] LABS: ANION GAP 9 (8-16); BLOOD UREA NITROGEN 6 MG/DL (7-18); CALCIUM 8.5 MG/DL (8.5-10.1); CHLORIDE 94 MMOL/L (99-107); CREATININE 0.67 MG/DL (0.40-0.90); GLUCOSE 98 MG/DL (70-104); MAGNESIUM 1.6 MG/DL (1.5-2.4); POTASSIUM 3.7 MMOL/L (3.5-5.1); SODIUM 129 MMOL/L (135-145); TOTAL CARBON DIOXIDE 26.2 MMOL/L (24-32); eGFR 85 ML/MIN
[2017-12-12 03:00] VITALS: BP 127/73
[2017-12-12] MEDS: ipratropium 0.5 MG/2.5ML nebule IH SCH (03:18)
[2017-12-12 06:00] VITALS: BP_SYST 112; BP_SYST 114; BP_DIAS 69; BP_DIAS 73
[2017-12-12] MEDS: thiamine 100mg tablet PO SCH (07:47)
[2017-12-12] MEDS: montelukast 10mg tablet PO SCH (07:47)
[2017-12-12] MEDS: sodium chloride 1gm tablet PO SCH ×3 (07:48→20:49)
[2017-12-12] MEDS: apixaban 5mg tablet PO SCH ×2 (07:48→20:50)
[2017-12-12] MEDS: sotalol 80mg tablet PO SCH ×2 (07:48→20:50)
[2017-12-12] MEDS: pantoprazole 40mg Tablet.DR PO SCH (07:48)
[2017-12-12] MEDS: folic acid 1mg tablet PO SCH (07:48)
[2017-12-12] MEDS: busPIRone 15mg tablet PO SCH ×2 (07:48→20:50)
[2017-12-12] MEDS: multivitamins, therapeutics tablet PO SCH (07:49)
[2017-12-12] MEDS: atorvastatin 20mg tablet PO SCH (07:49)
[2017-12-12] MEDS: HYDROcodone/acetaminophen 5mg/325mg tablet PO PRN ×2 (08:00→20:48)
[2017-12-12] MEDS: isosorbide mononitrate 30mg tab.SR.24H PO SCH (08:00)
[2017-12-12] MEDS: K and/or MAG REPLACEMENT MC SCH (08:00)
[2017-12-12] MEDS: BUDESONIDE 0.25 MG/2 ML AMPUL.NEB IH SCH ×2 (09:25→19:24)
[2017-12-12 11:00] VITALS: BP 112/73
[2017-12-12 15:00] VITALS: BP_SYST 126
[2017-12-12] MEDS: ipratropium/albuterol 3ml nebule NEB SCH ×2 (15:25→19:24)
[2017-12-12 19:00] VITALS: BP 131/83
[2017-12-12] MEDS: polyethylene glycol 3350 17gm powd pack PO SCH (20:49)
[2017-12-12 23:00] VITALS: BP 129/93
[2017-12-13] MEDS: ipratropium/albuterol 3ml nebule NEB SCH (02:02)
[2017-12-13] MEDS ORDERED: lactulose 20gm/30ml cup PO ONE (02:10)
[2017-12-13] MEDS ORDERED: bisacodyl 10mg suppository rectal RC PRN (02:10)
[2017-12-13] MEDS: diltiazem 30mg tablet PO SCH ×2 (02:25→07:48)
[2017-12-13 03:00] VITALS: BP 125/69
[2017-12-13 05:43] LABS: MAGNESIUM 1.9 MG/DL (1.5-2.4); POTASSIUM 3.8 MMOL/L (3.5-5.1)
[2017-12-13 06:00] VITALS: BP 122/62
[2017-12-13] MEDS: thiamine 100mg tablet PO SCH (07:47)
[2017-12-13] MEDS: apixaban 5mg tablet PO SCH (07:47)
[2017-12-13] MEDS: multivitamins, therapeutics tablet PO SCH (07:47)
[2017-12-13] MEDS: folic acid 1mg tablet PO SCH (07:48)
[2017-12-13] MEDS: sotalol 80mg tablet PO SCH (07:48)
[2017-12-13] MEDS: sodium chloride 1gm tablet PO SCH (07:48)
[2017-12-13] MEDS: isosorbide mononitrate 30mg tab.SR.24H PO SCH (07:48)
[2017-12-13] MEDS: pantoprazole 40mg Tablet.DR PO SCH (07:49)
[2017-12-13] MEDS: montelukast 10mg tablet PO SCH (07:49)
[2017-12-13] MEDS: atorvastatin 20mg tablet PO SCH (07:49)
[2017-12-13] MEDS: busPIRone 15mg tablet PO SCH (07:49)
[2017-12-13] MEDS: K and/or MAG REPLACEMENT MC SCH (08:00)
[2017-12-13 08:16] LABS: ALBUMIN 3.3 G/DL (3.4-5.0); ANION GAP 9 (8-16); BLOOD UREA NITROGEN 4 MG/DL (7-18); BUN/CREATININE RATIO 5.1 (6.6-38.0); CHLORIDE 101 MMOL/L (99-107); CREATININE 0.79 MG/DL (0.40-0.90); GLUCOSE 94 MG/DL (70-104); SODIUM 136 MMOL/L (135-145); TOTAL CARBON DIOXIDE 26.2 MMOL/L (24-32); eGFR 70 ML/MIN
[2017-12-13] MEDS ORDERED: DILT240C90 PO (10:54)
[2017-12-13] MEDS ORDERED: SOTA80TA73 PO (10:54)
[2017-12-13] MEDS ORDERED: APIX5TAB3 PO (10:54)
[2017-12-13 11:00] VITALS: BP 107/72
== END 2017-12-13 12:47 | disposition home health service (06) | DRG 309 ==
LOC: ER 10:10 → ED HOLD 13:32 → EDBEDREQ 16:39 → PCU 3S 16:50
PROVIDERS: ADMIT Family Medicine; ATTEND Family Medicine
DX: I48.91 Unspecified atrial fibrillation (principal); F10.239 Alcohol dependence with withdrawal, unspecified; E87.0 Hyperosmolality and hypernatremia; I50.32 Chronic diastolic (congestive) heart failure; I11.0 Hypertensive heart disease with heart failure; I27.21 Secondary pulmonary arterial hypertension; E87.1 Hypo-osmolality and hyponatremia; I08.1 Rheumatic disorders of both mitral and tricuspid valves; J44.9 Chronic obstructive pulmonary disease, unspecified; E78.5 Hyperlipidemia, unspecified; K21.9 Gastro-esophageal reflux disease without esophagitis; M19.90 Unspecified osteoarthritis, unspecified site; D64.9 Anemia, unspecified; E78.00 Pure hypercholesterolemia, unspecified; E86.0 Dehydration; F17.200 Nicotine dependence, unspecified, uncomplicated; F32.9 Major depressive disorder, single episode, unspecified; F41.9 Anxiety disorder, unspecified; M06.9 Rheumatoid arthritis, unspecified; Z79.899 Other long term (current) drug therapy; Z80.0 Family history of malignant neoplasm of digestive organs; Z82.5 Family history of asthma and other chronic lower respiratory diseases; Z83.3 Family history of diabetes mellitus; Z88.0 Allergy status to penicillin; Z88.2 Allergy status to sulfonamides; Z71.41 Alcohol abuse counseling and surveillance of alcoholic
CPT/HCPCS: 36415; 70450; 71045; 80048; 80053; 80061; 82607; 82728; 82746; 82803; 83036; 83540; 83550; 83690; 83735; 83880; 84100; 84132; 84295; 84443; 84484; 85018; 85025; 85610; 85730; 87070; 93005; 93306; 94640; 94760; 97110; 97116; 97162; 97530; 99285; J2270; J3411; J3480; J3490; J7030

== ENCOUNTER 2018-02-18 06:38 | Day surgery (SDC) | payer MEDICARE, MEDICAID ==
[2018-02-17 11:16] LABS: BASOPHILS # (AUTO) 0.1 X10'3 (0-0.2); BASOPHILS % (AUTO) 0.9 % (0-1); EOSINOPHILS # (AUTO) 0.1 X10'3 (0-0.9); EOSINOPHILS % (AUTO) 0.9 % (0-6); HEMATOCRIT 32.6 % (35.0-45.0); HEMOGLOBIN 10.5 g/dl (12.0-16.0); LYMPHOCYTES # (AUTO) 1.4 X10'3 (1.1-4.8); LYMPHOCYTES % (AUTO) 25.5 % (21-51); MEAN CORPUSCULAR HEMOGLOBIN 28.1 PG (27.0-31.0); MEAN CORPUSCULAR HGB CONC 32.2 % (33.0-36.5); MEAN CORPUSCULAR VOLUME 87.2 FL (78-98); MEAN PLATELET VOLUME 8.3 FL (7.4-10.4); MONOCYTES # (AUTO) 0.4 X10'3 (0-0.9); MONOCYTES % (AUTO) 6.5 % (2-12); NEUTROPHILS # (AUTO) 3.7 X10'3 (1.8-7.7); NEUTROPHILS % (AUTO) 66.2 % (42-75); PLATELET COUNT 362 X10'3 (140-440); RED BLOOD COUNT 3.74 X10'6 (4.20-5.60); RED CELL DISTRIBUTION WIDTH 16.3 % (11.5-14.5); WHITE BLOOD COUNT 5.5 X10'3 (4.5-11.0)
[2018-02-17 11:26] LABS: INR 1.1 INR; PROTHROMBIN TIME 11.2 SECONDS (9.0-12.0)
[2018-02-17 11:27] LABS: ALBUMIN 3.6 G/DL (3.4-5.0); ANION GAP 6 (8-16); BLOOD UREA NITROGEN 9 MG/DL (7-18); BUN/CREATININE RATIO 9.8 (6.6-38.0); CALCIUM 9.2 MG/DL (8.5-10.1); CHLORIDE 96 MMOL/L (99-107); CREATININE 0.92 MG/DL (0.40-0.90); GLUCOSE 93 MG/DL (70-104); POTASSIUM 4.3 MMOL/L (3.5-5.1); SODIUM 132 MMOL/L (135-145); TOTAL CARBON DIOXIDE 30.4 MMOL/L (24-32); eGFR 59 ML/MIN
[2018-02-18] VITALS (16 sets, daily range): BP systolic 91–107; BP diastolic 55–82
[~2018-02-18] VITALS: Ht 160 cm; Wt 73.3 kg
[~2018-02-18 06:38] MED LIST changes: +APIX5TAB3 PO; -CITA-278 PO; +DILT240C90 PO; -HYDR12.522 PO; +SOTA80TA73 PO; -WEL100T PO
[2018-02-18] MEDS ORDERED: morphine 10mg/ml inj. IV ONE (07:05)
[2018-02-18] MEDS ORDERED: atropine 0.1mg/ml 10ml syringe IV ONE (07:05)
[2018-02-18] MEDS ORDERED: MIDAZolam 5mg/ml 2ml vial IV ONE (07:05)
[2018-02-18] MEDS ORDERED: LORazepam 0.5 MG tablet PO ONE (07:05)
[2018-02-18] MEDS ORDERED: normal saline 1000ml 1,000 ML IV SCH (07:05)
[2018-02-18] MEDS ORDERED: FAMO-128 PO (07:37)
[2018-02-18] MEDS ORDERED: MAGN200T PO (07:37)
[2018-02-18] MEDS ORDERED: BUDE10.2 INH (07:37)
[2018-02-18] MEDS ORDERED: ERGO500014 PO (07:37)
[2018-02-18] MEDS ORDERED: LEVO75TA PO (07:37)
[2018-02-18] MEDS ORDERED: SOTA80TA PO (07:37)
[2018-02-18] MEDS ORDERED: amiodarone 150mg/dext, iso-os 100 ML IV ONE (08:00)
== END 2018-02-18 13:15 | disposition home or self-care (01) ==
LOC: SSTAY O 06:38
PROVIDERS: ATTEND Internal Medicine Cardiovascular Disease
DX: I48.1 Persistent atrial fibrillation (principal); E78.5 Hyperlipidemia, unspecified; I25.10 Atherosclerotic heart disease of native coronary artery without angina pectoris; J44.9 Chronic obstructive pulmonary disease, unspecified; I27.20 Pulmonary hypertension, unspecified; I11.0 Hypertensive heart disease with heart failure; I50.32 Chronic diastolic (congestive) heart failure; I08.1 Rheumatic disorders of both mitral and tricuspid valves; F41.8 Other specified anxiety disorders; I45.81 Long QT syndrome; K21.9 Gastro-esophageal reflux disease without esophagitis; M06.9 Rheumatoid arthritis, unspecified; M19.90 Unspecified osteoarthritis, unspecified site; F10.10 Alcohol abuse, uncomplicated; F32.9 Major depressive disorder, single episode, unspecified; Z88.0 Allergy status to penicillin; Z88.2 Allergy status to sulfonamides; Z86.74 Personal history of sudden cardiac arrest; Z87.891 Personal history of nicotine dependence; Z79.01 Long term (current) use of anticoagulants; Z86.79 Personal history of other diseases of the circulatory system; Z79.899 Other long term (current) drug therapy; Z79.891 Long term (current) use of opiate analgesic; Z83.3 Family history of diabetes mellitus; Z80.0 Family history of malignant neoplasm of digestive organs
CPT/HCPCS: 36415; 80048; 85025; 85610; 92960; 93005; J2250; J2270; J7030; A4620; J0282; J0461

== ENCOUNTER 2018-04-29 05:59 | Day surgery (SDC) | payer MEDICARE, MEDICAID ==
[2018-04-28 11:52] LABS: BASOPHILS # (AUTO) 0.1 X10'3 (0-0.2); BASOPHILS % (AUTO) 1.2 % (0-1); EOSINOPHILS # (AUTO) 0.5 X10'3 (0-0.9); EOSINOPHILS % (AUTO) 11.9 % (0-6); HEMATOCRIT 33.2 % (35.0-45.0); HEMOGLOBIN 10.8 g/dl (12.0-16.0); LYMPHOCYTES # (AUTO) 0.9 X10'3 (1.1-4.8); LYMPHOCYTES % (AUTO) 20.4 % (21-51); MEAN CORPUSCULAR HEMOGLOBIN 27.5 PG (27.0-31.0); MEAN CORPUSCULAR HGB CONC 32.6 % (33.0-36.5); MEAN CORPUSCULAR VOLUME 84.5 FL (78-98); MEAN PLATELET VOLUME 8.7 FL (7.4-10.4); MONOCYTES # (AUTO) 0.4 X10'3 (0-0.9); MONOCYTES % (AUTO) 9.8 % (2-12); NEUTROPHILS # (AUTO) 2.5 X10'3 (1.8-7.7); NEUTROPHILS % (AUTO) 56.7 % (42-75); PLATELET COUNT 310 X10'3 (140-440); RED BLOOD COUNT 3.93 X10'6 (4.20-5.60); RED CELL DISTRIBUTION WIDTH 19.9 % (11.5-14.5); WHITE BLOOD COUNT 4.4 X10'3 (4.5-11.0)
[2018-04-28 12:01] LABS: ALBUMIN 3.8 G/DL (3.4-5.0); ANION GAP 7 (8-16); BLOOD UREA NITROGEN 14 MG/DL (7-18); BUN/CREATININE RATIO 12.4 (6.6-38.0); CHLORIDE 100 MMOL/L (99-107); CREATININE 1.13 MG/DL (0.40-0.90); GLUCOSE 88 MG/DL (70-104); SODIUM 136 MMOL/L (135-145); TOTAL CARBON DIOXIDE 29.1 MMOL/L (24-32); eGFR 47 ML/MIN
[2018-04-28 12:07] LABS: PARTIAL THROMBOPLASTIN TIME 28 SECONDS (22-32); PROTHROMBIN TIME 10.1 SECONDS (9.0-12.0)
[2018-04-28 12:19] LABS: ANISOCYTOSIS 2+; ELLIPTOCYTES FEW; PLATELET ESTIMATE NORMAL; POIKILOCYTOSIS 1+; SCHISTOCYTES FEW
[2018-04-28 12:22] LABS: ACANTHOCYTES FEW
[2018-04-29] VITALS (13 sets, daily range): BP systolic 98–131; BP diastolic 49–71
[~2018-04-29] VITALS: Ht 160 cm; Wt 76.3 kg
[~2018-04-29 05:59] MED LIST changes: -ASPI81TA52 PO; -POLY17PO10 PO
[2018-04-29] MEDS ORDERED: clindamycin 600mg/D5W 50ml 50 ML IV PRN (06:15)
[2018-04-29] MEDS ORDERED: normal saline 1000ml 1,000 ML IV SCH (06:15)
[2018-04-29] MEDS ORDERED: ASPI81TA52 PO (06:29)
[2018-04-29] MEDS ORDERED: POLY17PO10 PO (06:29)
[2018-04-29] MEDS ORDERED: APIX5TAB3 PO (06:29)
[2018-04-29] MEDS ORDERED: clindamycin 600mg/D5W 50ml 50 ML IV ONE (07:34)
[2018-04-29] MEDS ORDERED: lidocaine 1%/epinephrine 1:100,000 injection 50ml vial ONE (07:35)
[2018-04-29] MEDS ORDERED: midazolam 2 mg/2 ml injection ONE ×2 (07:35→09:06)
[2018-04-29] MEDS ORDERED: clindamycin phosphate 150mg/ml inj. ONE (07:35)
[2018-04-29] MEDS ORDERED: fentaNYL/PF 50MCG/1 ML 2ML syringe ONE (07:35)
[2018-04-29] MEDS ORDERED: HYDROcodone/acetaminophen 5mg/325mg tablet PO PRN (10:20)
[2018-04-29] MEDS ORDERED: HYDROcodone/acetaminophen 10/325mg tab PO PRN (10:20)
[2018-04-29] MEDS ORDERED: clindamycin 600mg/D5W 50ml 50 ML IV SCH (16:00)
== END 2018-04-29 16:05 | disposition home or self-care (01) ==
LOC: SSTAY O 05:59
PROVIDERS: ATTEND Internal Medicine Cardiovascular Disease
DX: I49.5 Sick sinus syndrome (principal); I11.0 Hypertensive heart disease with heart failure; I50.30 Unspecified diastolic (congestive) heart failure; I48.0 Paroxysmal atrial fibrillation; I27.20 Pulmonary hypertension, unspecified; E78.5 Hyperlipidemia, unspecified; E11.9 Type 2 diabetes mellitus without complications; E66.3 Overweight; J44.9 Chronic obstructive pulmonary disease, unspecified; F41.8 Other specified anxiety disorders; K21.9 Gastro-esophageal reflux disease without esophagitis; I25.10 Atherosclerotic heart disease of native coronary artery without angina pectoris; I08.1 Rheumatic disorders of both mitral and tricuspid valves; M19.90 Unspecified osteoarthritis, unspecified site; E03.9 Hypothyroidism, unspecified; F10.21 Alcohol dependence, in remission; F32.9 Major depressive disorder, single episode, unspecified; Z79.01 Long term (current) use of anticoagulants; Z90.89 Acquired absence of other organs; Z88.2 Allergy status to sulfonamides; Z88.0 Allergy status to penicillin; Z79.82 Long term (current) use of aspirin; Z86.74 Personal history of sudden cardiac arrest; Z87.891 Personal history of nicotine dependence; Z68.29 Body mass index [BMI] 29.0-29.9, adult; Z98.890 Other specified postprocedural states; Z79.899 Other long term (current) drug therapy
CPT/HCPCS: 33208; 36415; 71046; 80048; 85025; 85610; 85730; 93005; 99152; 99153; A4565; A6449; C1785; C1894; C1898; J2250; J3010; J3490; J7030; A4620

== ENCOUNTER → 2018-04-29 | Emergency (ER) | payer MEDICARE, MEDICAID ==
[~2018-04-29] VITALS: Ht 160 cm; Wt 80.0 kg
[~2018-04-29] MED LIST changes: +ASPI81TA52 PO; +BUDE10.2 INH; -DILT240C90 PO; +ERGO500014 PO; +FAMO-128 PO; +HYDR-4383 PO; -HYDR-569 PO; +LEVO75TA PO; +MAGN200T PO; -MONT10TA21 PO; -PANT40TA39 PO; +POLY17PO10 PO; +SOTA80TA PO; -SOTA80TA73 PO
[2018-04-29 22:27] VITALS: BP 133/83
== END | disposition home or self-care (01) ==
LOC: ER 22:23
DX: I97.618 Postprocedural hemorrhage of a circulatory system organ or structure following other circulatory system procedure (principal); I50.9 Heart failure, unspecified; J44.9 Chronic obstructive pulmonary disease, unspecified; K21.9 Gastro-esophageal reflux disease without esophagitis; M19.90 Unspecified osteoarthritis, unspecified site; M06.9 Rheumatoid arthritis, unspecified; Z88.0 Allergy status to penicillin; Z88.2 Allergy status to sulfonamides; Z95.0 Presence of cardiac pacemaker; Z79.82 Long term (current) use of aspirin; Z79.899 Other long term (current) drug therapy
CPT/HCPCS: 99282

== ENCOUNTER 2020-04-23 14:11 | Emergency (ER) | payer MEDICARE, MEDICAID ==
[~2020-04-23] VITALS: Ht 160 cm; Wt 79.6 kg
[~2020-04-23 14:11] MED LIST changes: -ADV50250 IH; +ASPI81TA52 PO; +BUPR150T6 PO; -BUSP10TA11 PO; +BUSP15TA7 PO; +CHOL100025 PO; +CITA20TA27 PO; +DOCU-267 PO; -ERGO500014 PO; -FAMO-128 PO; +FLUD0.1T PO; -HYDR-4383 PO; -MAGN200T PO; +MAGN500T2 PO; -MELO-83 PO; +MONT10TA26 PO; -ROSU10TA PO; +SOTA80TA46 PO; +TIOT18CA3 IH; -TIOT18CA7 IH
[2020-04-23] MEDS ORDERED: normal saline 1000ML IV soln IVB ONE (14:15)
[2020-04-23 14:29] LABS: BASOPHILS % (AUTO) 0.6 % (0-1); EOSINOPHILS # (AUTO) 0.5 X10'3 (0-0.9); EOSINOPHILS % (AUTO) 6.6 % (0-6); HEMATOCRIT 36.5 % (35.0-45.0); HEMOGLOBIN 12.3 g/dl (12.0-16.0); LYMPHOCYTES # (AUTO) 1.1 X10'3 (1.1-4.8); LYMPHOCYTES % (AUTO) 14.9 % (21-51); MEAN CORPUSCULAR HEMOGLOBIN 32.8 PG (27.0-31.0); MEAN CORPUSCULAR HGB CONC 33.8 g/dL (33.0-36.5); MEAN PLATELET VOLUME 8.1 FL (7.4-10.4); MONOCYTES % (AUTO) 13.4 % (2-12); NEUTROPHILS # (AUTO) 4.6 X10'3 (1.8-7.7); NEUTROPHILS % (AUTO) 64.5 % (42-75); PLATELET COUNT 251 X10'3 (140-440); RED BLOOD COUNT 3.76 X10'6 (4.20-5.60); RED CELL DISTRIBUTION WIDTH 12.8 % (11.5-14.5); WHITE BLOOD COUNT 7.1 X10'3 (4.5-11.0)
[2020-04-23 14:44] LABS: ALANINE AMINOTRANSFERASE 17 U/L (12-78); ALBUMIN/GLOBULIN RATIO 0.8 (1.1-1.5); ALKALINE PHOSPHATASE 58 IU/L (46-116); ANION GAP 4 (8-16); ASPARTATE AMINO TRANSFERASE 10 U/L (10-37); BILIRUBIN,TOTAL 0.6 MG/DL (0.1-1.0); BLOOD UREA NITROGEN 17 MG/DL (7-18); BUN/CREATININE RATIO 15.7 (6.6-38.0); CALCIUM 8.4 MG/DL (8.5-10.1); CHLORIDE 102 MMOL/L (99-107); CREATININE 1.08 MG/DL (0.40-0.90); GLUCOSE 94 MG/DL (70-104); LIPASE 70 U/L (73-393); POTASSIUM 3.6 MMOL/L (3.5-5.1); SODIUM 132 MMOL/L (135-145); TOTAL CARBON DIOXIDE 26.4 MMOL/L (24-32); TOTAL PROTEIN 6.7 G/DL (6.4-8.2); eGFR 49 ML/MIN
[2020-04-23] MEDS ORDERED: glycopyrrolate 0.2mg/ml inj IV ONE (15:00)
[2020-04-23] MEDS ORDERED: loperamide 2mg capsule PO ONE (15:00)
[2020-04-23 15:38] LABS: CLARITY,URINE CLOUDY (Clear); COLOR,URINE YELLOW (Yellow); GLUCOSE, URINE NEGATIVE (Neg); KETONES,URINE TRACE mg/dl (Neg); LEUKOCYTE ESTERASE ,URINE MODERATE (Neg); NITRITES, URINE NEGATIVE (Neg); OCCULT BLOOD,URINE LARGE (Neg); PH,URINE 6.5 (4.8-8.0); PROTEIN,URINE 100 mg/dl (Neg); UROBILINOGEN,URINE 0.2 E.U/dL (0.2-1.0)
[2020-04-23 15:44] LABS: UA COLLECTION TYPE CLN CATCH MIDSTREAM
[2020-04-23 15:50] LABS: SQUAMOUS EPITHELIAL CELL,UR MODERATE /LPF (FEW)
[2020-04-23 15:52] LABS: WBC,URINE TNTC /HPF (0-4)
[2020-04-23 15:54] LABS: RENAL CELLS, URINE FEW /HPF
[2020-04-23 15:55] LABS: RBC,URINE 20-50 /HPF (0-2)
[2020-04-23 15:56] LABS: BACTERIA,URINE 3+ /HPF (Neg); WBC CLUMPS,URINE MANY /HPF (NEGATIVE)
[2020-04-23] MEDS ORDERED: CefTRIAXone 2gm/D5W 50ml 50 ML IV ONE (16:00)
[2020-04-23] MEDS ORDERED: CEPH500C5 PO (16:02)
[2020-04-23] MEDS ORDERED: LOPE-144 PO (16:02)
--- NOTE | 2020-04-23 16:33 | NUR ---
SPOKE PTS DAUGHTER SHE WILL BE HER TO [employer]IP[employer] PT IN THE NEXT HOUR. DAUGHTER WAS GIVEN UPDATE
[2020-04-23 17:28] VITALS: BP 95/60
== END 2020-04-23 17:29 | disposition home or self-care (01) ==
LOC: ER 14:11
DX: N39.0 Urinary tract infection, site not specified (principal); R19.7 Diarrhea, unspecified; I50.9 Heart failure, unspecified; J44.9 Chronic obstructive pulmonary disease, unspecified; K21.9 Gastro-esophageal reflux disease without esophagitis; M19.90 Unspecified osteoarthritis, unspecified site; F10.10 Alcohol abuse, uncomplicated; Z98.890 Other specified postprocedural states; Z88.0 Allergy status to penicillin; Z88.2 Allergy status to sulfonamides; Z79.82 Long term (current) use of aspirin; Z79.2 Long term (current) use of antibiotics; Z79.899 Other long term (current) drug therapy; Y90.9 Presence of alcohol in blood, level not specified
CPT/HCPCS: 36415; 80053; 81001; 83690; 85025; 87088; 96365; 96375; 99284; J0696; J7030; J3490